=== PATIENT | female | born 1935 | race Two or more races ===

== ENCOUNTER 2022-11-16 11:22 | Emergency (ER) | payer BC, OTHER ==
[~2022-11-16] VITALS: Ht 170.2 cm; Wt 71.2 kg
[~2022-11-16 11:22] MED LIST: AMLO-212 PO; ASPI-1169 PO; DOCU-141 PO; DONE10TA44 PO; GABA800T11 PO; MULT-594 PO; [UNRECOGNIZED DRUG - CODE] PO
[2022-11-16] MEDS ORDERED: oxyCODONE/APAP (5/325 MG) 1 UDTAB TABLET ONE (11:44)
[2022-11-16] MEDS ORDERED: oxyCODONE/APAP (5/325 MG) 1 UDTAB TABLET PO ONE (12:00)
[2022-11-16 12:29] LABS: BASOPHILS % (AUTO) 0.4 % (0.0-2.0); EOSINOPHILS # (AUTO) 0.2 K/uL (0.0-0.7); EOSINOPHILS % (AUTO) 2.5 % (0.0-6.0); HEMATOCRIT 32 % (33-45); HEMOGLOBIN 10.4 g/dL (11.5-14.8); LYMPHOCYTES # (AUTO) 1.7 K/uL (0.8-4.8); LYMPHOCYTES % (AUTO) 22.7 % (20.0-44.0); MEAN CORPUSCULAR HEMOGLOBIN 30 PG (26.0-33.0); MEAN CORPUSCULAR HGB CONC 33 g/dl (31.0-36.0); MEAN CORPUSCULAR VOLUME 90 fL (82-100); MONOCYTES # (AUTO) 0.5 K/uL (0.1-1.30); MONOCYTES % (AUTO) 7.4 % (2.0-12.0); NEUTROPHILS # (AUTO) 4.9 K/uL (1.8-8.9); PLATELET COUNT (AUTO) 460 K/uL (150-450); RED BLOOD CELL COUNT(AUTO) 3.49 MIL/uL (4.0-5.2); RED CELL DISTRIBUTION WIDTH 14.6 % (11.5-15.0); WHITE BLOOD COUNT (AUTO) 7.3 K/uL (4.3-11.0)
[2022-11-16 13:02] LABS: CALCIUM, SERUM 9.1 mg/dL (8.5-10.1); CREATININE 1.1 mg/dL (0.6-1.3); POTASSIUM 3.9 mmol/L (3.5-5.1)
[2022-11-16] MEDS ORDERED: OXYC-128 PO (13:19)
[2022-11-16 13:54] VITALS: BP 128/88; TEMP 98; O2SAT 97
[2022-11-17] MEDS ORDERED: OXYC-128 PO (10:25)
== END 2022-11-16 13:55 | disposition home or self-care (01) ==
LOC: ER 11:24
DX: R59.1 Generalized enlarged lymph nodes (principal); F03.90 Unspecified dementia, unspecified severity, without behavioral disturbance, psychotic disturbance, mood disturbance, and anxiety; I10 Essential (primary) hypertension; E11.9 Type 2 diabetes mellitus without complications
CPT/HCPCS: 36415; 71045-TC; 80048-TC; 85025-TC